=== PATIENT | female | born 1965 | race Caucasian/White ===

== ENCOUNTER 2022-04-14 00:12 | Day surgery (SDC) | payer OTHER, SELFPAY ==
[2022-04-01 15:33] VITALS: BMI 22.4
--- NOTE | 2022-04-01 15:39 | PC.NURSE ---
Report to the Outpatient Waiting Room, entrance under the green pavilion located off [facility], at time 1130 on date 04/14/22. Planned Procedure Time: 1330. Time changes happen often and if your time is changed the preop area will call you the afternoon before. - You and your visitor will be asked to self-screen and do not enter if you have any COVID symptoms. - Only one visitor is requested with a max of two and NO children visitors are allowed at this time. - The patient visitor may be requested to leave or wait in car when not with patient due to distancing restrictions. - A mask is REQUIRED within the hospital. Patients may have clear liquids (water, carbonated beverages, clear teas, apple juice) until 3 hours prior to surgery with a maximum of 20 ounces. - No food from midnight until time of surgery Take the following medications with a SIP of water the morning of surgery: BUPROPION Medications to discontinue per physician: VITAMINS/SUPPLEMENTS Date to take last dose: 04/10/22 Please no make-up, nail [place], hairspray, perfume, deodorant, or body powder the day of surgery. No jewelry (including any body piercings) or valuables the day of surgery, leave them at home. Please take a shower or bath the night before, or the morning of, surgery with an antibacterial soap. Wear comfortable, loose fitting clothing. - Jewelry must be removed prior to entering the operating room. Rings and piercings that are not removed may be cut off. - The hospital will not accept responsibility for valuables. - Please leave all valuables, including medications, at home the day of surgery. If you are going home after surgery, a licensed spike driver must drive you home. - NO public transportation without another adult if you receive anesthesia. - We recommend that an adult stay with you for 24 hours following discharge. - We also recommend that you do not drive, make important decision, drink alcoholic beverages, or take any drugs that were not prescribed by your health care provider for at least 24 hours after your discharge time. Follow any additional instructions given to you from your surgeon. If you or anyone in your household have experienced Covid symptoms in the past week, please notify your surgeon or the nurse liaison at the phone number below for possible testing. Telephone instructions given to PT - TYRESE AUSTIN and asked if any additional questions and then verbalized understanding. Patient advised to call surgeon office or pre surgery nurse liaison [phone] if any additional questions.
[2022-04-14] VITALS (9 sets, daily range): BP systolic 104–136; BP diastolic 48–66; PULSE 62–98; RESP 12–20; TEMP 36.3–36.7; O2SAT 95–100
[2022-04-14] MEDS: LACTATED RINGERS 1,000 ML 30 ML IV CONT ×2 (11:50→17:32)
--- NOTE | 2022-04-14 11:58 | P.PNAN_ITS ---
Anes - Initial Pre Proc Eval Procedure: Operation Date: 04/14/22 13:30 Proposed Procedures p Bilateral Breast Mastopexy with Galaflex - Aamir Rosales MD Date/Time: 04/14/22 11:58 Surgeon: Aamir Rosales MD Pre Op Diagnosis: breast ptosis Patient Data Age: 57 Gender: F Height: 1.7 m Weight: 65 kg Allergies Allergy/AdvReac Type Severity Reaction Status Date / Time No Known Allergies Allergy Verified 04/14/22 11:40 Home Medications Medication Instructions Recorded Confirmed Type bupropion HCl 150 mg 24 hr tablet, 150 mg PO DAILY 04/01/22 04/14/22 History extended release multivitamin 1 tablet PO DAILY 04/01/22 04/14/22 History Laboratory Tests 04/14/22 11:42 Cotinine Pending Patient hx anesthesia problems: none Family hx anesthesia problems: none Results Review: All pre-operative results and documents have been reviewed as part of the pre- operative evaluation. [facility] Surgical History Surgical History (Updated 04/14/22 @ 11:59 by Sam Rossi MD) H/O: hysterectomy Social History Social History Smoking packs per day: 0.75 Smoking cigarettes per day: 15.0 Years smoked: 25 Smoking pack-years: 18.75 Smoking status: Former smoker Tobacco type: cigarettes and e-cigarettes/vaping Smoking end date: 03/16/22 Additional smoking assessment comments: OCC. VAPING WITHOUT NICOTINE Alcohol intake: current Drinks per week: 5 Substance use: never Substance use type: does not use Living arrangements: with family Spiritual care concerns: No Anes - Eval Final PreProcedure Day of Procedure 04/14/22 11:58 Patient weight: normal Heart: regular rate and rhythm Lungs: clear to auscultation Airway: Mallampati scale class II Neurological: alert and oriented Last oral intake: >/= 8 hours ASA classification: II Emergent: no Anesthetic plan: proceed Anesthesia type and monitoring: general LMA and standard monitoring Results Review: All pre-operative results and documents have been reviewed as part of the pre- operative evaluation. Informed Consent: The patient's anesthetic plan and its attendant risks and benefits were discussed with the patient/family/POA. Questions were solicited and answers provided to the satisfaction of the patient/family/POA.
[2022-04-14 12:16] LABS: Urine Cotinine NEGATIVE
--- NOTE | 2022-04-14 12:48 | SUR.PREOP ---
Discussed delay with patient. Voiced understanding. Applied Chey hugger due to c/o cold.
--- NOTE | 2022-04-14 14:29 | WPDHPUPDATE1 ---
History and Physical Update Update Date/Time: 04/14/22 14:29 History and Physical has been reviewed, including an updated exam of the patient. There are NO changes in the patient's condition. Risks, benefits, and alternatives have been discussed and questions answered. Patient agrees to proceed with procedure.
--- NOTE | 2022-04-14 14:30 | P.OP_ITS ---
Procedure Note - Detailed Date of Procedure 04/14/22 Pre-op Diagnosis breast ptosis Post-op Diagnosis Same Procedure Performed Bilateral mastopexy with galaflex Surgeon Aamir Rosales MD Anesthesia General Findings Inverted T Superior Medial Pedicle Galaflex REF# [id number] Lot [id number] Exp 03/04/2024 Description of Procedure She is here today for bilateral breast augmentation mastopexy. Previously and again today the risks, benefits, alternatives were discussed in extensive detail. I wanted her to be very realistic about the risks involved as well as expectations. We discussed aftercare and what to monitor for. Made sure answered all of her questions to her satisfaction today and consent was obtained. Marked in the preoperative holding area with their verification. The patient was taken to the operating room placed supine on the operating table. Anesthesia was provided by anesthesiology. A surgical time-out was taken. She was prepped and draped in a standard sterile fashion. Eleven blade was utilized to make a stab incision and infiltrated with low volume tumescent solution. The breast was tailor tacked into place. I tailor tacked the breast into position. Placed her in a sitting position. Verified the nipple-areolar location based on preoperative planning as well as intraoperative observations and measurements in full agreement. She was placed supine. I de-epithelialized the pedicle. I then de-epithelialized the inferior breast tissue to create an autoaugmentation flap based on intercostal career education teacher. (the left was trimmed as needed to improve symmetry. I elevated medial and lateral tissue flaps as well for planned closure. The autoaugmentation flap was sutured to the chest wall with 2-0 PDS. Galaflex was soaking on the back table in a betadine solution. This was trimmed and sutured into place with 2-0 Vicryl. I closed along the IMF with 2-0 Stratafix. Along the vertical with 2-0 PDS. I closed around the Jony with 3-0 strata fix. 3-0 Monocryl along the vertical. 3-0 Stratafix along the IMF. I finally closed everything with running subcuticular 4-0 Monocryl and tissue glue. Fluffs and surgical bra were placed. Estimated Blood Loss 50 Drains No Packing No Pathology None sent Complications No immediate complications Condition Stable Disposition PACU
[2022-04-14] MEDS: NACL 0.9% IRRIG POUR BOTTLE 900 ML, GENTAMICIN SULFATE INJ 160 MG, ceFAZolin 2 GM, POVI... IRRIGATION (14:55)
[2022-04-14] MEDS: ceFAZolin 2 GM/D5W 50 ML 2 GM/50 ML BAG IVPB (14:55)
[2022-04-14] MEDS: LIDOCAINE HCL 1% PF 30 ML VIAL INFILTRATE (14:55)
[2022-04-14] MEDS: TRANEXAMIC ACID 1,000MG/ISO100 1,000 MG/100 ML BAG 200 MG IVPB (14:55)
[2022-04-14] MEDS: BUPIVACAINE/EPINEPHRINE 0.5% 30 ML VIAL INFILTRATE (14:55)
[2022-04-14] MEDS: LACTATED RINGERS IRRIG 1,000 ML, LIDOCAINE HCL 1% LOCAL INJ 50 ML, EPINEPHrine HCL INJ ... INFILTRATE (14:55)
[2022-04-14] MEDS: ONDANSETRON INJ 4 MG/2 ML VIAL IV PUSH (17:31)
[2022-04-14] MEDS: fentaNYL CITRATE INJ (*CRX) 100 MCG/2 ML VIAL 25 MCG IV PUSH ×4 (17:32→17:50)
[2022-04-14] MEDS: oxyCODONE HCL (*CRX) 5 MG TAB IR PO (18:40)
== END 2022-04-14 19:12 | disposition home or self-care (01) ==
PROVIDERS: Visit Provider Surgery Plastic and Reconstructive Surgery
PROC: (CPT 19316; principal; 2022-04-14 13:30)
DX: Z41.1 Encounter for cosmetic surgery (principal); N64.81 Ptosis of breast; F17.290 Nicotine dependence, other tobacco product, uncomplicated
CPT/HCPCS: 19316; 15777 ×2; 80307; A9270; J0171; J0690; J1100; J1580; J2250; J2405; J2704; J3010; J7120